=== PATIENT | female | born 1970 | race Caucasian/White ===

== ENCOUNTER → 2017-05-14 | Outpatient (CLI) | payer BC, OTHER ==
--- NOTE | 2017-05-14 20:56 | Diagnostic Imaging Report ---
EXAMINATION: Bilateral breast ultrasound. INDICATION: Breast nodules. FINDINGS: The diagnostic mammogram performed earlier today failed to show any sign of malignancy. The previous bilateral breast ultrasound exam performed on 07/18/2016 did note a small hypoechoic lesion in the 12 o'clock position of the right breast measuring 0.5 x 0.5 x 0.5 cm. That finding is no longer evident on this study. The previous exam also identified a 0.6 x 0.6 x 0.9 cm hypoechoic lesion in the 4:30 position of the right breast, roughly 8 cm from the nipple. That finding is again evident and now measures 0.8 x 0.5 x 0.8 cm. This finding is better visualized than on the prior exam and this density seemed somewhat smaller on the mammogram performed earlier today. This lesion has a smooth border and perhaps a small amount of through-transmission. This may represent either a small slightly complicated cyst or perhaps a benign solid lesion. There is no internal vascularity associated with this finding. On the prior exam, in the 1:30 position of the left breast, roughly 6 cm from the nipple, there was a lobulated hypoechoic lesion measuring 0.7 x 0.7 x 0.9 cm. This finding now measures 0.7 x 0.4 x 0.5 cm. This does contain internal echoes. This may represent a small solid lesion, but the fact that it has not changed adversely since the prior exam would indicate that it is most likely benign. There is no new solid mass identified within either breast. IMPRESSION: The hypoechoic lesion in the 12 o'clock position of the right breast seen previously has resolved. The other hypoechoic lesions in the breasts seem stable. I do feel that these findings are most likely benign. I would recommend that a six-month followup bilateral ultrasound exam of the breasts be performed for continued evaluation. ACR BI-RADS Category 3: Probably benign findings. Dictated by: Dictated on workstation # [id number]
--- NOTE | 2017-05-15 10:24 | Diagnostic Imaging Report ---
EXAMINATION: Digital mammogram bilateral diagnostic. INDICATION: Followup exam. COMPARISON: This study was compared to the prior exams of 08/07/2016, 07/11/2016, and 06/20/2015. PERSONAL HISTORY: At this time, there are no current complaints. FINDINGS: The screening mammogram performed on 07/11/2016 noted that the fibroglandular tissue in both breasts was quite dense. There also appeared to be a stable nodule in the medial aspect of the right breast. The MRI exam of 07/11/2015 indicated an indeterminate nodule in the left breast at approximately 12 o'clock and a questionable right retroareolar region nodule at 12 o'clock. The breast ultrasound exam performed on 07/18/2016 noted small hypoechoic lesions in the 4:30 position of the right breast, the 1:30 position of the left breast, and in the 12 o'clock position of the right breast. These findings were felt to have a low suspicion for malignancy. On this study, the overall appearance of the breasts does not appear to have changed significantly. The fibroglandular tissue is quite dense and this does limit the sensitivity of this exam. The nodular density in the medial aspect of the right breast does seem somewhat smaller on this study, however. There is no primary or secondary sign of malignancy noted. The tomographic views were also unremarkable for malignancy. IMPRESSION: 1. The small nodular density in the medial aspect of the right breast seen previously has decreased in size somewhat. The overall appearance of the breasts is otherwise no different. 2. An ultrasound exam of both breasts is pending for further study. ACR BI-RADS Category 0: Incomplete. (Needs additional imaging evaluation). Result letter will be mailed to the patient. Note: At least 10% of breast cancer is not imaged by mammography. Dictated by: Dictated on workstation # [id number]
== END ==
LOC: RAD 13:04
PROVIDERS: ATTEND Family Medicine
DX: R92.8 Other abnormal and inconclusive findings on diagnostic imaging of breast (principal)
CPT/HCPCS: 76642; 77066

== ENCOUNTER → 2018-02-19 | Outpatient (CLI) | payer OTHER ==
--- NOTE | 2018-02-19 19:26 | Diagnostic Imaging Report ---
INDICATION: Bilateral breast nodules. The study is performed for followup. EXAMINATION: Bilateral breast ultrasound. COMPARISON: Correlation is made with the prior breast ultrasound from 05/14/2017. FINDINGS: The previous ultrasound did demonstrate a hypoechoic slightly lobulated mass at the 1:30 location of the left breast, 6 cm from the nipple. No sonographic abnormality is identified at this location on today's study. On the right, the previously described hypoechoic circumscribed nodule at the 4:30 location, 8 cm from the nipple, is again noted and appears to be stable at 8 mm x 5 mm x 5 mm. No new mass is detected. IMPRESSION: BI-RADS category 3. 1. Previously noted nodule at the 1:30 location of the left breast is no longer present. 2. Stable circumscribed nodule at the 4:30 location of the right breast, 8 cm from the nipple, when compared examination from 9 months earlier. The patient should return in May for bilateral mammography as well as bilateral breast ultrasound to show continued stability. ACR BI-RADS Category 3: Probably benign findings. Result letter will be mailed to the patient. Note: At least 10% of breast cancer is not imaged by mammography. Dictated by: Dictated on workstation # [id number]
== END ==
LOC: RAD 08:27
PROVIDERS: ATTEND Family Medicine
DX: N63.21 Unspecified lump in the left breast, upper outer quadrant (principal); N63.14 Unspecified lump in the right breast, lower inner quadrant
CPT/HCPCS: 76642

== ENCOUNTER → 2018-07-22 | Outpatient (CLI) | payer OTHER ==
--- NOTE | 2018-07-22 19:19 | Diagnostic Imaging Report ---
INDICATION: Bilateral breast nodules. COMPARISON: Correlation is made with diagnostic mammogram earlier the same day as well as prior breast ultrasound from 02/19/2018. FINDINGS: Sonographic interrogation of the 1:30 location of the left breast was performed. The previously noted nodule in May 2017 is again no longer present. No new abnormality in the left breast is seen. Imaging of the right breast again demonstrates hypoechoic nodule at the 4:30 location, 8 cm from the nipple, unchanged at 7 mm x 5 mm x 5 mm. IMPRESSION: Stable bilateral breast ultrasound. Additional followup of the right breast with ultrasound is recommended in six months to show continued stability. ACR BI-RADS Category 3: Probably benign findings. Dictated by: Dictated on workstation # [id number]
--- NOTE | 2018-07-24 11:18 | Diagnostic Imaging Report ---
Indication: Six-month followup bilateral breast nodules. Correlation is made with prior mammograms from 05/14/2017 and 07/11/2016. 2-D and 3-D bilateral screening mammography was performed with CAD. Both breasts remain heterogeneously dense, limiting the sensitivity of mammography. Ovoid benign-appearing nodule in the medial aspect of the right breast posterior depth appears stable. No new mass or malignant appearing microcalcifications are seen. The axillae are unremarkable. Impression: BI-RADS 0. Stable bilateral mammograms. Followup ultrasound of previously noted bilateral breast nodules is recommended and will be performed today. ACR BI-RADS Category 0: Incomplete. (Needs additional imaging evaluation). Result letter will be mailed to the patient. Note: At least 10% of breast cancer is not imaged by mammography. Dictated by: Dictated on workstation # [id number]
== END ==
LOC: RAD 08:39
PROVIDERS: ATTEND Family Medicine
DX: N63.13 Unspecified lump in the right breast, lower outer quadrant (principal)
CPT/HCPCS: 76642; 77066

== ENCOUNTER → 2019-01-15 | Outpatient (CLI) | payer OTHER ==
--- NOTE | 2019-01-15 17:46 | Diagnostic Imaging Report ---
INDICATION: Six-month followup right breast nodule. COMPARISON: Correlation is made with prior breast ultrasounds dating back to June 2015. EXAMINATION: Right breast ultrasound. FINDINGS: Sonographic interrogation of the hypoechoic nodule at the 4:30 location of the right breast, 8 cm from the nipple, appears to be fairly stable, approximately 8 mm x 5 mm x 6 mm. This shows stability over several years, consistent with benign etiology. No new mass is seen. IMPRESSION: Stable hypoechoic nodule at the 4:30 location of the right breast, 8 cm from the nipple. This has shown stability over several years. Patient may return to routine annual screening mammography. ACR BI-RADS Category 2: Benign findings. Result letter will be mailed to the patient. Note: At least 10% of breast cancer is not imaged by mammography. Dictated on workstation # [id number]
== END ==
LOC: RAD 14:13
PROVIDERS: ATTEND Family Medicine
DX: N63.14 Unspecified lump in the right breast, lower inner quadrant (principal)

== ENCOUNTER 2019-05-19 10:30 | Outpatient (CLI) | payer OTHER ==
[~2019-05-19] VITALS: Ht 166.4 cm; Wt 82.6 kg
[2019-05-19] MEDS ORDERED: PRAV40TA2 PO (10:54)
[2019-05-19] MEDS ORDERED: LEVO25TA5 PO (10:54)
[2019-05-19] MEDS ORDERED: POTA99TA21 PO (10:54)
[2019-05-19] MEDS ORDERED: CHOL200025 PO (10:54)
[2019-05-19] MEDS ORDERED: UBID100C44 PO (10:54)
[2019-05-19] MEDS ORDERED: MAGN400T39 PO (10:54)
[2019-05-19] MEDS ORDERED: LISI1TAB10 PO (10:54)
[2019-05-19] MEDS ORDERED: CYAN500011 PO (10:54)
[2019-05-19] MEDS ORDERED: CETI10TA17 PO (10:54)
== END 2019-05-19 10:55 | disposition home or self-care (01) ==
LOC: PREOP 10:30
PROVIDERS: ATTEND Internal Medicine
DX: Z01.818 Encounter for other preprocedural examination (principal)

== ENCOUNTER 2019-05-21 07:24 | Day surgery (SDC) | payer OTHER ==
--- NOTE | 2019-05-05 19:25 | HISTORY AND PHYSICAL ---
DATE OF SERVICE: COLONOSCOPY HISTORY AND PHYSICAL HISTORY OF PRESENT ILLNESS: The patient is a 48-year-old white female referred by Dr. Hudson for her first screening colonoscopy. She is deemed to be of average risk as she is not aware of any family history for colon cancer. Denies bowel habit change, abdominal pain, nausea, vomiting, bright red blood per rectum or melena. 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 She has no known history of vascular disease. FAMILY HISTORY: Father at the age of 70 of a myocardial infarction. Mother is still living at the age of 70 with history of hypertension and hyperlipidemia, but no known vascular disease. PAST SURGICAL HISTORY: She had ORIF of left thumb number of years ago and has had several benign breast biopsies. 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 MEDICATIONS: Include pravastatin 40 mg daily, L-thyroxine 25 mcg daily, lisinopril HCT 20/25 daily, sertraline 10 mg daily, baby aspirin 81 mg daily, potassium, magnesium, CoQ10, B12 and vitamin D 2000 units daily. PHYSICAL EXAMINATION: GENERAL: Reveals a white female appeared to be in no acute distress. HEENT: Unremarkable. Sclerae nonicteric. CHEST: Clear to auscultation. CARDIOVASCULAR: Revealed a regular rate and rhythm without murmur, S3 or S4. HEENT: She is a Mallampati class 3 oropharyngeal configuration. No erythema noted. ABDOMEN: Soft, supple without mass, organomegaly or tenderness. No bruits are noted. EXTREMITIES: Reveal no cyanosis, clubbing or edema. ASSESSMENT AND PLAN: The patient is set up for her first screening colonoscopy, deemed to be of average risk on 05/21/2018. Prep instructions with the Krishna-prep kit were given and questions were answered. I thank you for the referral of this pleasant lady. Job ID: [id number] DocumentID: [id number] Dictated Date: 04/29/2019 11:51:45 Cross Cut Saw Operator Date: 04/29/2019 12:33:52 Dictated By: CARI GR MD
[~2019-05-21] VITALS: Ht 166.4 cm; Wt 82.6 kg
[2019-05-21] VITALS (11 sets, daily range): BP systolic 103–129; BP diastolic 52–84
[~2019-05-21 07:24] MED LIST: CETI10TA17 PO; CHOL200025 PO; CYAN500011 PO; LEVO25TA5 PO; LISI1TAB10 PO; MAGN400T39 PO; POTA99TA21 PO; PRAV40TA2 PO; UBID100C44 PO
[2019-05-21] MEDS ORDERED: LIDOCAINE JELLY 2% 6 ML SYRINGE MM PRN (07:45)
[2019-05-21] MEDS ORDERED: fentaNYL INJECTION 100 MCG/2 ML AMP IVP ONE (07:45)
[2019-05-21] MEDS ORDERED: D5 LR IV SOLUTION 1,000 ML IV PRN (07:45)
[2019-05-21] MEDS ORDERED: MIDAZOLAM 2 MG/2 ML (VERSED) VIAL IVP ONE (07:45)
[2019-05-21] MEDS ORDERED: fentaNYL INJECTION 100 MCG/2 ML AMP ONE ×2 (08:10)
[2019-05-21] MEDS ORDERED: LIDOCAINE JELLY 2% 6 ML SYRINGE ONE (08:10)
[2019-05-21] MEDS ORDERED: MIDAZOLAM 2 MG/2 ML (VERSED) VIAL ONE ×2 (08:10)
--- NOTE | 2019-05-21 09:22 | Pre-Op Note & Conscious Sedat ---
Pre-Operative Progress Note H&P Reviewed The H&P was reviewed, patient examined and no changes noted. Date H&P Reviewed: May 21, 2019 Time H&P Reviewed: 08:00 Conscious Sedation Pre-Proced ASA Score 2 For ASA 3 and 4: Consider anesthesia and medical clearance. Also, for patients with a history of failed moderate sedation consider anesthesia. Airway Lungs Heart ASA score ASA 1: a normal healthy patient ASA 2: a patient with a mild systemic disease (mid diabetes, controlled hypertension, obesity ASA 3: a patient with a severe systemic disease that limits activity (angina, COPD, prior Myocardial infarction) ASA 4: a patient with an incapacitating disease that is a constant threat to life (CHF, renal failure) ASA 5: a moribund patient not expected to survive 24 hrs. (ruptured aneurysm) ASA 6: a declared brain- patient whose organs are being harvested. For emergent operations, add the letter E after the classification Mallampati Classification Grade 2 Sedation Plan Analgesia, Amnesia, Plan communicated to team members, Discussed options with patient/fam, Discussed risks with patient/fam The patient is an appropriate candidate to undergo the planned procedure, sedation, and anesthesia. The patient immediately re-assessed prior to indication. CARI GR MD May 21, 2019 09:22
--- NOTE | 2019-05-21 16:56 | OPERATIVE REPORT ---
DATE OF SERVICE: COLONOSCOPY SUMMARY INDICATION FOR THE PROCEDURE: Screening colonoscopy. DESCRIPTION OF PROCEDURE: The patient was placed in the left lateral decubitus position. Prior to undergoing colonoscopy, digital rectal evaluation was performed. Anal sphincter tone was normal and the perianal reflexes intact. No abnormalities, no additional inspection of the anal canal or distal rectal vault. The colonoscope was then inserted into the rectum and under direct visualization advanced to the cecum. The cecum was identified by identification of the ileocecal valve and cecal strap. Photographic documentation was obtained. Quality of prep was good. The patient tolerated the procedure well. FINDINGS: There was no evidence for internal or external hemorrhoids. The rectum, sigmoid colon, descending colon, splenic flexure, transverse colon, hepatic flexure, ascending colon and cecum were unremarkable with no evidence for neoplasia, diverticular disease or vascular malformation. No inflammatory changes noted. ASSESSMENT: Normal colonoscopy to the cecum. The patient is not aware of any family history for colon cancer, so would advocate consideration for repeat screening colonoscopy in 10 years. I thank you for the referral of this pleasant lady. Job ID: [id number] DocumentID: [id number] Dictated Date: 05/21/2019 09:33:21 Reviewer Sales Date: 05/21/2019 16:20:00 Dictated By: CARI GR MD
== END 2019-05-21 09:30 | disposition home or self-care (01) ==
LOC: ENDO 07:24
PROVIDERS: ATTEND Internal Medicine
DX: Z12.11 Encounter for screening for malignant neoplasm of colon (principal); E78.5 Hyperlipidemia, unspecified; I10 Essential (primary) hypertension; E06.3 Autoimmune thyroiditis; Z82.49 Family history of ischemic heart disease and other diseases of the circulatory system; Z79.82 Long term (current) use of aspirin; Z79.899 Other long term (current) drug therapy

== ENCOUNTER → 2020-07-03 | Outpatient (CLI) | payer OTHER ==
[~2020-07-03] MED LIST changes: -LISI1TAB10 PO; +LISI1TAB26 PO
--- NOTE | 2020-07-03 11:04 | Diagnostic Imaging Report ---
INDICATION: Routine screening. Comparison is made with prior mammogram 07/22/2018 and 05/14/2017. 2-D and 3-D bilateral screening mammography was performed with CAD. Both breasts remain heterogeneously dense, limiting the sensitivity of mammography. The parenchymal pattern is stable. Benign nodule medial right breast is stable. No spiculated mass or malignant appearing microcalcifications are seen. Axillae are unremarkable. IMPRESSION: BI-RADS Category 2 No mammographic features suspicious for malignancy are identified. ACR BI-RADS Category 2: Benign findings. Result letter will be mailed to the patient. Note: At least 10% of breast cancer is not imaged by mammography. Dictated by: Dictated on workstation # [id number]
== END ==
LOC: RAD 07:41
PROVIDERS: ATTEND Family Medicine
DX: Z12.31 Encounter for screening mammogram for malignant neoplasm of breast (principal)
CPT/HCPCS: 77063; 77067

== ENCOUNTER → 2021-11-06 | Outpatient (CLI) | payer OTHER ==
[~2021-11-06] MED LIST changes: -LISI1TAB26 PO; +LISI1TAB48 PO; -POTA99TA21 PO; +POTA99TA26 PO
--- NOTE | 2021-11-06 13:21 | Diagnostic Imaging Report ---
INDICATION: Routine screening. Comparison is made with prior mammogram from 07/03/2020 and 07/22/2018. 2-D and 3-D bilateral screening mammography was performed with CAD. Both breast are heterogeneously dense, limiting the sensitivity of mammography. The parenchymal pattern is stable. No mass or malignant-appearing microcalcifications are seen. There is benign calcification of the right breast. Axillae are unremarkable. IMPRESSION: No mammographic features suspicious for malignancy are identified. BI-RADS Category 2 ACR BI-RADS Category 2: Benign findings. Result letter will be mailed to the patient. Note: At least 10% of breast cancer is not imaged by mammography. Dictated by: Dictated on workstation # [id number]
== END ==
LOC: RAD 07:12
PROVIDERS: ATTEND Family Medicine
DX: Z12.31 Encounter for screening mammogram for malignant neoplasm of breast (principal)
CPT/HCPCS: 77063; 77067

== ENCOUNTER → 2022-11-11 | Outpatient (CLI) | payer OTHER ==
--- NOTE | 2022-11-11 09:05 | Diagnostic Imaging Report ---
INDICATION: Routine screening. COMPARISON: 11/06/2021 and 07/03/2020. TECHNIQUE: 2D and 3D bilateral screening mammography was performed with CAD. FINDINGS: Both breasts are heterogeneously dense, limiting the sensitivity of mammography. The parenchymal pattern is stable. No mass or malignant-appearing microcalcifications are seen. The axillae are unremarkable. IMPRESSION: No mammographic features suspicious for malignancy are identified. ACR BI-RADS Category 1: Negative. Result letter will be mailed to the patient. Note: At least 10% of breast cancer is not imaged by mammography. Dictated by: Dictated on workstation # [id number]
== END ==
PROVIDERS: ATTEND Family Medicine
DX: Z12.31 Encounter for screening mammogram for malignant neoplasm of breast (principal)
CPT/HCPCS: 77063; 77067